=== PATIENT | male | born 1960 | race Caucasian/White ===

== ENCOUNTER 2018-04-13 08:10 | Day surgery (SDC) | payer MEDICARE, BC ==
[~2018-04-13] VITALS: Ht 177.8 cm; Wt 150.0 kg
[2018-04-13] MEDS ORDERED: LACTATED RINGERS 1,000 ML IV SCH (08:37)
[2018-04-13] MEDS ORDERED: DILT240C61 PO (08:48)
[2018-04-13] MEDS ORDERED: ONDA4TAB7 PO (08:48)
[2018-04-13] MEDS ORDERED: ATOR40TA78 PO (08:48)
[2018-04-13] MEDS ORDERED: OXYC5TAB3 PO (08:48)
[2018-04-13] MEDS ORDERED: TAMS0.4C2 PO (08:48)
[2018-04-13 09:00] VITALS: BP 167/102
[2018-04-13 09:11] VITALS: BP 146/82
[2018-04-13] MEDS ORDERED: CEFAZOLIN 1,000 MG ONE (10:19)
[2018-04-13] MEDS ORDERED: MIDAZOLAM 1 MG/ML, 2ML ONE (10:19)
[2018-04-13] MEDS ORDERED: GENTAMICIN 80 MG/2 ML ONE (10:19)
[2018-04-13] MEDS ORDERED: ONDANSETRON 2MG/ML, 2ML ONE (10:19)
[2018-04-13] MEDS ORDERED: ROCURONIUM 10MG/ML,5ML ONE ×2 (10:19→10:31)
[2018-04-13] MEDS ORDERED: FENTANYL PF 250 MCG/5ML ONE (10:20)
[2018-04-13] MEDS ORDERED: DEXAMETHASONE 4 MG/ML, 1ML ONE ×2 (10:28)
[2018-04-13] MEDS ORDERED: PROPOFOL 10 MG/ML, 20ML ONE (10:29)
[2018-04-13] MEDS ORDERED: EPHEDRINE 50 MG/ML, 1ML IVPush PRN (11:00)
[2018-04-13] MEDS ORDERED: ACETAMINOPHEN 325 MG TABLET PO PRN (11:00)
[2018-04-13] MEDS ORDERED: hydrALAzine 20 MG/ML, 1ML IV PRN (11:00)
[2018-04-13] MEDS ORDERED: ALBUTEROL SULFATE 2.5 MG/3 ML NPPB PRN (11:00)
[2018-04-13] MEDS ORDERED: ONDANSETRON ODT 8 MG PO PRN (11:00)
[2018-04-13] MEDS ORDERED: HALOPERIDOL 5 MG/ML IV PRN (11:00)
[2018-04-13] MEDS ORDERED: MORPHINE SULFATE 4 MG/ML, 1ML IVPush PRN (11:00)
[2018-04-13] MEDS ORDERED: LABETALOL 5MG/ML, 20ML IV PRN (11:00)
[2018-04-13] MEDS ORDERED: MIDAZOLAM 1 MG/ML, 2ML IV PRN (11:00)
[2018-04-13] MEDS ORDERED: OXYcodone 5 MG/5 ML ORAL.SOL UDC PO PRN (11:00)
[2018-04-13] MEDS ORDERED: MEPERIDINE/PF 25MG/0.5ML IVPush PRN (11:00)
[2018-04-13] MEDS ORDERED: PROMETHAZINE 25 MG/ML, 1ML IV PRN (11:00)
[2018-04-13] MEDS ORDERED: HYDROmorphone 1 MG/ML, 1ML IV PRN (11:00)
[2018-04-13] MEDS ORDERED: ONDANSETRON 2MG/ML, 2ML IV PRN (11:00)
[2018-04-13] MEDS ORDERED: FENTANYL PF 100 MCG/2ML IV PRN (11:00)
[2018-04-13] MEDS ORDERED: DIAZEPAM 5 MG/ML, 2ML IVPush PRN (11:00)
[2018-04-13] MEDS ORDERED: PROMETHAZINE 12.5 MG SUPP PR PRN (11:00)
[2018-04-13] MEDS ORDERED: MEPERIDINE/PF 50 MG/ML ONE (12:02)
[2018-04-13] MEDS ORDERED: OXYcodone 5 MG/5 ML ORAL.SOL UDC ONE (12:02)
[2018-04-13] MEDS ORDERED: OMNIPAQUE 350 MG/ML, 50 ML BOTTLE ONE (12:15)
[2018-04-13] MEDS ORDERED: KETOROLAC 10MG TABLET PO SCH (16:00)
== END 2018-04-13 15:10 | disposition home or self-care (01) ==
LOC: OUT 08:10
PROVIDERS: ATTEND Urology
DX: N20.1 Calculus of ureter (principal); E78.5 Hyperlipidemia, unspecified; F32.9 Major depressive disorder, single episode, unspecified; I10 Essential (primary) hypertension; Z88.5 Allergy status to narcotic agent; Z79.82 Long term (current) use of aspirin; Z79.899 Other long term (current) drug therapy
CPT/HCPCS: 52356; 74420; 82360; 88300; 93005; C2617; J0690; J1100; J1580; J2175; J2250; J2405; J2704; J3010; J7120; Q9967